=== PATIENT | female | born 1985 | race Caucasian/White ===

== ENCOUNTER 2017-05-23 22:58 | Emergency (ER) | payer OTHER ==
[~2017-05-23] VITALS: Ht 165.1 cm; Wt 117.9 kg
--- NOTE | ~2017-05-23 | EKG ---
[address] [address] ELECTROCARDIOGRAM REPORT Name: JENNA MONTERO [facility]il[id number] Admission: 05/23/17 Attend Phys: Discharge: 05/24/17 Date of : 83 Report #: [id number] THIS REPORT FOR: //name// [facility] ED Test Date: 2017-05-23 Test Time: 23:06:50 Pat Name: JENNA MONTERO Department: Room: Gender: F [employer]: RILEY : 1985 Requested By: Tori Mckinley Order Number: [id number] MD: Moi Howell Measurements Intervals [place] Rate: 125 P: 42 NC: 143 QRS: 0 QRSD: 80 T: 91 QT: 319 QTc: 460 Interpretive Statements Sinus tachycardia No previous ECG available for comparison Electronically Signed On 05-24-2017 12:12:31 CDT by Moi Howell [email or web address] <ELECTRONICALLY SIGNED> By: Moi Howell MD 05/24/17 1212 [id number] Moi Howell MD /LATIA
[2017-05-24] LABS: HEMATOCRIT 43.1 % (37.0-47.0); HEMOGLOBIN 14.3 gm/dL (12.0-15.0); MCH 27.8 pg (26.0-34.0); MCHC 33.1 g/dL (28.0-37.0); MCV 83.9 fL (80.0-100.0); RBC 5.14 mil/uL (4.20-5.00); RDW 13.6 % (10.5-14.5); WBC 14.6 thou/uL (4.0-11.0)
[2017-05-24] MEDS ORDERED: KEPPRA 500 MG500 M1 PO ×2 (00:04→00:05)
[2017-05-24] MEDS ORDERED: ZONISAMIDE 100100 M1 PO (00:06)
[2017-05-24] MEDS ORDERED: TRILEPTAL150 MG PO (00:07)
[2017-05-24 00:10] LABS: CALCIUM 9.2 mg/dL (8.5-10.1); CREATININE 1.1 mg/dL (0.6-1.0); POTASSIUM 3.7 mmol/L (3.5-5.1)
[2017-05-24 02:06] VITALS: BP 117/71
== END 2017-05-24 02:06 | disposition home or self-care (01) ==
LOC: ER 22:58
PROVIDERS: Emergency Medicine
DX: R56.9 Unspecified convulsions (principal)

== ENCOUNTER 2017-07-26 00:44 | Emergency (ER) | payer OTHER ==
[~2017-07-26] VITALS: Ht 165.1 cm; Wt 117.9 kg
[~2017-07-26 00:44] MED LIST: KEPPRA 500 MG500 M1 PO; TRILEPTAL150 MG PO; ZONISAMIDE 100100 M1 PO
[2017-07-26 01:04] LABS: URINE BILIRUBIN NEGATIVE (Negative); URINE BLOOD TRACE (Negative); URINE CLARITY CLEAR; URINE COLOR YELLOW; URINE GLUCOSE-RANDOM* NEGATIVE (Negative); URINE KETONES NEGATIVE (Negative); URINE LEUKOCYTES TRACE (Negative); URINE NITRITE NEGATIVE (Negative); URINE PROTEIN (DIPSTICK) NEGATIVE (Negative); URINE UROBILINOGEN 0.2 E.U./dl (0.2-1.0)
[2017-07-26] MEDS ORDERED: PROMS25 WY RECTAL (01:09)
[2017-07-26] MEDS ORDERED: ZOFRAN ODT4 MG PO (01:09)
[2017-07-26] MEDS ORDERED: PHENERGAN 25 MG25 M1 PO (01:09)
[2017-07-26 01:33] VITALS: BP 160/95
== END 2017-07-26 01:47 | disposition home or self-care (01) ==
LOC: ER 00:44
PROVIDERS: Emergency Medicine
DX: R11.2 Nausea with vomiting, unspecified (principal); R19.7 Diarrhea, unspecified; G40.909 Epilepsy, unspecified, not intractable, without status epilepticus

== ENCOUNTER 2018-05-07 18:33 | Emergency (ER) | payer OTHER ==
[~2018-05-07] VITALS: Ht 170.2 cm; Wt 108.9 kg
[~2018-05-07 18:33] MED LIST changes: +PHENERGAN 25 MG25 M1 PO; +PROMS25 WY RECTAL; +ZOFRAN ODT4 MG PO
[2018-05-07] MEDS ORDERED: NORCO 5-325 TA1 EACH PO (19:11)
[2018-05-07] MEDS ORDERED: AUGMENTIN 500-1 EACH PO (19:11)
[2018-05-07 19:26] VITALS: BP 122/66
== END 2018-05-07 19:34 | disposition home or self-care (01) ==
LOC: ER 18:33
DX: H66.91 Otitis media, unspecified, right ear (principal)